=== PATIENT | male | born 1960 | race Caucasian/White ===

== ENCOUNTER 2020-01-18 16:16 | Emergency (ER) | payer BC, OTHER ==
[2020-01-18 16:24] VITALS: BP 174/90; PULSE 68; TEMP 97.9; BMI 31.4
[2020-01-18] MEDS ORDERED: KETOROLAC TROMETHAMINE 60 MG/2 ML VIAL IM ONE (16:33)
[2020-01-18] MEDS ORDERED: KETOROLAC TROMETHAMINE 60 MG/2 ML VIAL ONE (16:35)
--- NOTE | 2020-01-18 16:42 | PDOC ---
History of Present Illness - General Chief Complaint: Injury Stated Complaint: INJURY Time Seen by Provider: 01/18/20 16:27 History Source: Patient - History of Present Illness Occurred: reports: this morning Pain Location: reports: upper extremity Method of Injury: Yes: fall Past History - Past Medical History Allergies/Adverse Reactions: Allergies Allergy/AdvReac Type Severity Reaction Status Date / Time No Known Allergies Allergy Verified 01/18/20 16:22 Home Medications: Ambulatory Orders Aspirin 81 mg PO DAILY 01/18/20 Atorvastatin Calcium 20 mg PO HS 01/18/20 Cholecalciferol (Vitamin D3) [Vitamin D3 -] 2,000 unit PO DAILY 01/18/20 Naproxen 500 mg PO BID #14 tablet 01/18/20 COPD: No Hypercholesterolemia: Yes - Psycho Social/Smoking Cessation Hx Smoking History: Never smoked Hx Alcohol Use: No Drug/Substance Use Hx: No Review of Systems - Review of Systems Musculoskeletal: Yes: Joint Pain. No: Joint Swelling Neurological: No: Numbness, Tingling, Weakness *Physical Exam - Vital Signs Last Vital Signs Temp Pulse Resp BP Pulse Ox 97.9 F 68 20 174/90 H 97 01/18/20 16:23 01/18/20 16:23 01/18/20 16:23 01/18/20 16:23 01/18/20 16:23 - Physical Exam General Appearance: Yes: Appropriately Dressed, Mild Distress HEENT: positive: Normal Voice Neck: positive: Supple Respiratory/Chest: negative: Respiratory Distress Extremity: positive: Normal Inspection, Tender (to proximal aspect of arm b/l, FROM to R shoulder 2/2 pain, no joint swelling/deformity, NVI) Integumentary: positive: Dry, Warm Neurologic: positive: Fully Oriented, Alert, Normal Mood/Affect ED Treatment Course - RADIOLOGY Radiology Studies Ordered: Category Date Time Status SHOULDER-LEFT [RAD] Stat Radiology 01/18/20 16:33 Ordered SHOULDER-RIGHT [RAD] Stat Radiology 01/18/20 16:33 Ordered - Medications Given in the ED: ED Medications Discontinued Medications Generic Name Dose Route Start Last Admin Trade Name Freq PRN Reason Stop Dose Admin Ketorolac Tromethamine 60 mg 01/18/20 16:33 01/18/20 16:35 Toradol Injection - IM 01/18/20 16:34 60 mg ONCE ONE Administration Medical Decision Making - Medical Decision Making 01/18/20 16:36 59-year-old male, no significant history, here with b/l shoulder pain after fall. Patient states while he was in a store today, he tripped over some objects on the ground using his R hand to break his fall. No R wrist/hand pain. States he is unsure how he hurt the L shoulder. Denies head injury, LOC, headache dizziness, nausea or vomiting. Denies any other injuries see exam R/o R shoulder fx/dislocation though low clinical suspicion -pain control -sling -XR 01/18/20 16:57 B/l shoulder xrays neg. Dc with sling and pain control. Ortho follow-up as needed Discharge - Discharge Information Problems reviewed: Yes Clinical Impression/Diagnosis: Shoulder strain Qualifiers: Encounter type: initial encounter Laterality: right Qualified Code(s): S46.911A - Strain of unspecified muscle, fascia and tendon at shoulder and upper arm level, right arm, initial encounter Condition: Good Disposition: HOME - Additional Discharge Information Prescriptions: Naproxen 500 mg PO BID #14 tablet - Follow up/Referral Referrals: Joseluis Hackett MD [Primary Care Provider] - Ranjith Sanchez MD [Staff Physician] - - Patient Discharge Instructions Patient Printed Discharge Instructions: DI for Shoulder Sprain Additional Instructions: You have bilateral shoulder strain. Your x-rays did not show any fractures or dislocation Take naproxen as directed and make sure you take food before taking meds Apply ice to area of maximum pain frequently If pain persist after 2 weeks, please follow-up with Dr. Sanchez of orthopedics - Post Discharge Activity Work/Back to School Note: Back to Work
== END 2020-01-18 17:15 | disposition home or self-care (01) ==
LOC: JERFT 16:16
DX: S46.811A Strain of other muscles, fascia and tendons at shoulder and upper arm level, right arm, initial encounter (principal); W18.09XA Striking against other object with subsequent fall, initial encounter; Y93.89 Activity, other specified; Y92.512 Supermarket, store or market as the place of occurrence of the external cause; Y99.8 Other external cause status
CPT/HCPCS: 73030-TC-LT-FY; 73030-TC-RT-FY; 99284-25

== ENCOUNTER 2023-02-17 12:15 | Emergency (ER) | payer BC, OTHER ==
[2023-02-17 12:21] VITALS: BP 135/83; PULSE 69; RESP 18; TEMP 98.5; BMI 31.4
[2023-02-17] MEDS ORDERED: KETOROLAC TROMETHAMINE 15 MG/ML VIAL IM ONE (13:24)
[2023-02-17] MEDS ORDERED: KETOROLAC TROMETHAMINE 15 MG/ML VIAL ONE (13:29)
== END 2023-02-17 15:04 | disposition home or self-care (01) ==
LOC: JERFT 12:15
PROC: 3E0233Z Introduction of Anti-inflammatory into Muscle, Percutaneous Approach (ICD-10-PCS; principal; 2023-02-17)
DX: S46.912A Strain of unspecified muscle, fascia and tendon at shoulder and upper arm level, left arm, initial encounter (principal); W01.198A Fall on same level from slipping, tripping and stumbling with subsequent striking against other object, initial encounter
CPT/HCPCS: 73030-TC-LT-FY; 73060-TC-LT-FY; 73070-TC-LT-FY; 99284-25

== ENCOUNTER 2023-04-10 04:28 | Day surgery (SDC) | payer BC, OTHER ==
[2023-04-08 10:21] VITALS: BMI 30.7
[2023-04-10] MEDS ORDERED: DEXAMETHASONE SOD PHOSPHATE/PF 10 MG/ML SDV ONE (14:05)
[2023-04-10] MEDS ORDERED: BUPIVACAINE HCL/PF 0.5% (5 MG/ML) 30 ML VIAL IJ ONE (14:05)
[2023-04-10] MEDS ORDERED: MIDAZOLAM HCL 2 MG/2 ML SINGLE DOSE VIAL ONE ×2 (14:05→15:30)
[2023-04-10] MEDS ORDERED: ceFAZolin SODIUM 1 GM VIAL ONE (14:39)
[2023-04-10] MEDS ORDERED: PROPOFOL 40 ML ONE (14:41)
[2023-04-10] MEDS ORDERED: ONDANSETRON 4 MG/2 ML VIAL ONE (14:54)
[2023-04-10] MEDS ORDERED: DEXAMETHASONE SOD PHOSPHATE 4 MG/1 ML VIAL ONE (14:54)
[2023-04-10] MEDS ORDERED: KETOROLAC TROMETHAMINE 30 MG/1 ML VIAL ONE (14:54)
[2023-04-10] MEDS ORDERED: LABETALOL HCL 5 MG/1 ML (100MG/20 ML VIAL) ONE (15:00)
[2023-04-10] MEDS ORDERED: ONDANSETRON 4 MG/2 ML VIAL IVPUSH PRN (15:45)
[2023-04-10] MEDS ORDERED: LACTATED RINGERS SOLUTION 1,000 ML IV SCH (15:45)
[2023-04-10] MEDS ORDERED: oxyCODONE HCL 5 MG TABLET PO PRN (15:45)
[2023-04-10 16:40] VITALS: PULSE 66; RESP 18; TEMP 97.7
[2023-04-10 17:35] VITALS: BP 114/64
== END 2023-04-10 17:39 | disposition home or self-care (01) ==
LOC: FASU 04:28 → JASU-SURG 04:28 → FASU 17:39
PROVIDERS: ATTEND Orthopaedic Surgery
PROC: 0RNK4ZZ Release Left Shoulder Joint, Percutaneous Endoscopic Approach (ICD-10-PCS; principal; 2023-04-10 14:46)
DX: M75.102 Unspecified rotator cuff tear or rupture of left shoulder, not specified as traumatic (principal)
CPT/HCPCS: 94760; C1713; C1763; C1883

== ENCOUNTER 2024-01-11 15:48 | Emergency (ER) | payer BC, OTHER ==
[2024-01-11 15:57] VITALS: BP 148/80; PULSE 94; RESP 18; TEMP 97.8; BMI 31.6
[2024-01-11] MEDS ORDERED: LIDOCAINE 4% PATCH TP ONE (16:23)
[2024-01-11] MEDS ORDERED: diazePAM 5 MG TABLET ONE (16:24)
[2024-01-11] MEDS ORDERED: KETOROLAC TROMETHAMINE 30 MG/1 ML VIAL ONE ×2 (16:24)
[2024-01-11] MEDS: LIDOCAINE 4% PATCH TP ONE (16:31)
[2024-01-11] MEDS: KETOROLAC TROMETHAMINE 30 MG/1 ML VIAL IM ONE (16:31)
[2024-01-11] MEDS: diazePAM 5 MG TABLET PO ONE (16:32)
[2024-01-11] MEDS ORDERED: LIDOCAINE PATCH REMOVAL MC SCH (22:00)
== END 2024-01-11 17:57 | disposition home or self-care (01) ==
LOC: JERFT 15:48
PROC: 3E0233Z Introduction of Anti-inflammatory into Muscle, Percutaneous Approach (ICD-10-PCS; principal; 2024-01-11)
DX: M54.50 Low back pain, unspecified (principal); K80.20 Calculus of gallbladder without cholecystitis without obstruction; K59.00 Constipation, unspecified
CPT/HCPCS: 72100-TC-FY; 99284-25